=== PATIENT | male | born 1990 | race Caucasian/White ===

== ENCOUNTER 2021-04-25 03:22 | Outpatient (CLI) | payer MEDICAID, SELFPAY ==
[2021-04-25 16:49] LABS: Abs Immature Grans 0.02 10^3/uL (0.0-0.06); Absolute Basophil Count 0.02 10^3/uL (0.0-0.2); Absolute Eosinophil Count 0.04 10^3/uL (0.0-0.7); Absolute Lymphocyte Count 1.99 10^3/uL (1.2-3.4); Absolute Monocyte Count 0.66 10^3/uL (0.1-0.8); Absolute Neutrophil Count 3.99 10^3/uL (1.2-6.7); Basophils % 0.3; Eosinophils % 0.6; HCT 42.5 % (40.0-50.0); HGB 14.3 g/dL (13.5-17.5); Immature Grans % 0.3; Lymphocytes % 29.6; MCH 28.7 pg (27.0-33.0); MCHC 33.6 % (32.0-36.0); MCV 85.2 fL (80-95); MPV 9.7 fL (8.0-11.0); Monocytes % 9.8; Neutrophils % 59.4; Nucleated RBC 0 %; Platelet Count 286 10^3/uL (130-400); RBC 4.99 10^6/uL (4.36-5.78); WBC 6.72 10^3/uL (4.4-10.8)
[2021-04-25 17:22] LABS: ALT 86 U/L (16-63); AST 39 U/L (15-37); Albumin 4.3 g/dL (3.4-5.0); Alkaline Phosphatase 79 U/L (46-116); Anion Gap 7.9 mmol/L (3-11); BUN 9 mg/dL (7-18); Bilirubin, Total 0.4 mg/dL (0.2-1.0); CO2 29.1 mmol/L (21.0-32.0); CREATININE 0.9 mg/dL (0.70-1.30); Calcium 9.1 mg/dL (8.5-10.1); Chloride 103 mmol/L (98-107); GGT 51 U/L (15-85); Glucose 95 mg/dL (74-106); Potassium 4.1 mmol/L (3.5-5.1); Sodium 140 mmol/L (136-145); Total Protein 7.7 g/dL (6.4-8.2)
[2021-04-27 09:22] LABS: HBs Antibody, Quant 7.2 mIU/mL (See Note); Hepatitis B Surface Ab Negative (See Note)
[2021-04-27 09:26] LABS: Hepatitis B Surface Ag Negative (Negative)
[2021-04-27 10:15] LABS: HIV-1/2 Ag & Ab Screen Negative (Negative)
[2021-04-27 10:43] LABS: Hep B Core Antibody Negative (Negative)
[2021-04-27 10:48] LABS: Hepatitis C Ab w Rflx HCV PCR Reactive (Negative)
[2021-04-27 11:06] LABS: Hep A Total Ab w Rflx IgM Negative (Negative)
[2021-04-27 11:53] LABS: HCV RNA Qualitative Detected (Undetected)
[2021-04-28 22:53] LABS: HCV Genotype 1a (Undetected)
[2021-05-01 14:21] LABS: HCV RNA Detection Quantitative 4370000 IU/mL (Undetected)
== END 2021-04-25 03:23 | disposition home or self-care (01) ==
LOC: LBO 03:23
PROVIDERS: Visit Provider Nurse Practitioner Gerontology
DX: F11.20 Opioid dependence, uncomplicated (principal)
CPT/HCPCS: 36415; 80053; 86704; 86706; 86709; 86803; 87340; 87389; 87522; 82977; 85025; 87521

== ENCOUNTER 2021-06-25 11:46 | Emergency (ER) | payer MEDICAID, SELFPAY ==
[2021-06-25 11:54] VITALS: BP 120/80; PULSE 95; RESP 16; TEMP 37; O2SAT 99
--- NOTE | 2021-06-25 12:03 | ED.GENADUL_ITS ---
Discharge Plan Disposition Patient Disposition: AGAINST MEDICAL ADVICE Condition: Stable Discharge Details Clinical Impression: Hand laceration Primary Care Provider: Adriana,Local ED Provider: Carina Zimmerman Home Meds and New Rx's Prescriptions: New amoxicillin-pot clavulanate 875-125 mg tablet 1 tab PO BID 10 Days Qty: 20 0RF Continued buprenorphine-naloxone [Suboxone] 8-2 mg film 0RF Label Comments: DISSOLVE 2 FILMS UNDER THE TONGUE ONCE DIALY FOR 14 DAYS Mavyret 100-40 mg tablet PO 0RF Label Comments: TAKE 3 TABLETS BY MOUTH ONCE DAILY WITH FOOD Discharge Instructions Instructions: Laceration (ED) Additional Instructions: You are leaving the hospital AGAINST MEDICAL ADVICE. It is recommended that you stay for suture repair of your hand lacerations. Please take the antibiotic prescription as directed until finished. Please return to the emergency department when you are able for further evaluation and suture repair of your hand lacerations. Follow-up with your primary care doctor in 1 week. Return to the emergency department with any worsening or new concerning symptoms. Discharge Data Discharge Physician: Carina Zimmerman Medical Decision Making 31-year-old [id number] male presents with right hand laceration sustained after picking up a turkey who he thought was and scratched his hand with clots. Unknown tetanus status. Patient is to 3 cm slightly jagged laceration, some aspect superficial others extending through the dermis noted on the volar aspect of his right lateral palmar hand. Mild oozing of blood. No obvious foreign bodies. Neurovascular intact. No bony deformity. Boostrix ordered and recommended but patient declined. His hand was irrigated and soaked. Shortly after evaluation, patient stated he needed to leave to take care of his 2 young children. It was recommended that he stay for suture placement. Risks of disability including infection, continued bleeding, scar formation, or any possible neurovascular deficit described and patient understands and is still stating he needs to leave. AMA form signed. He was given a bottle of Augmentin to go in addition to prescription. He was advised to return here at any time today if he is able to have suture placement. Usual and customary return precautions given prior to leaving. Medical Records Medical records reviewed: Yes I reviewed the patient's medical records. HPI General Mode of arrival: ambulatory . Date/Time Provider Initiated Documentation: 06/25/21 12:02 . Limitations to Documentation: no limitations . Information obtained by: patient . 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 Patient states he is unsure of his tetanus status. He denies any other injuries. He denies any known foreign bodies in his hand. Related Data Home Medications Medication Instructions Recorded Confirmed amoxicillin 875 mg-potassium 1 tab PO BID 10 Days #20 tab 06/25/21 clavulanate 125 mg tablet buprenorphine 8 mg-naloxone 2 mg film 06/25/21 06/25/21 sublingual film (Suboxone) glecaprevir 100 mg-pibrentasvir 40 tab PO 06/25/21 06/25/21 mg tablet (Mavyret) Previous Rx's Medication Instructions Recorded amoxicillin 875 mg-potassium 1 tab PO BID 10 Days #20 tab 06/25/21 clavulanate 125 mg tablet Allergies Allergy/AdvReac Type Severity Reaction Status Date / Time No Known Allergies Allergy Unverified 06/25/21 11:58 General Stated Complaint: Laceration SONY: 4 Review of Systems All systems reviewed & are unremarkable except as noted in HPI and below Constitutional Constitutional: Denies chills, Denies excessive sweating, Denies fatigue, Denies fever(s), Denies weakness and Denies weight loss Eyes Eyes: Reports system reviewed and no additional complaints, except as documented and Denies blurry vision ENT Ears, Nose, Mouth, and Throat: Denies vertigo, Denies dizziness, Denies otalgia, Denies nasal congestion, Denies sore throat and Denies throat swelling Cardiovascular Cardiovascular: Denies chest pain, Denies syncope, Denies rapid heart rate and Denies dyspnea Respiratory Respiratory: Denies chest congestion, Denies cough, Denies pain on inspiration and Denies dyspnea Gastrointestinal Gastrointestinal: Denies abdominal pain, Denies diarrhea and Denies vomiting Genitourinary Genitourinary: Denies hematuria, Denies dysuria and Denies flank pain Musculoskeletal Musculoskeletal: Denies back pain and Denies joint swelling Integumentary/Breasts Skin/Breast: Denies lesions and Denies rash Neurologic Neurologic: Denies behavioral changes, Denies confusion, Denies vertigo, Denies dizziness, Denies syncope, Denies localized weakness and Denies weakness Psychiatric Psychiatric: Denies behavioral changes, Denies confusion and Denies depression Endocrine Endocrine: Denies excessive sweating and Denies fatigue Hematologic/Lymphatic Hematologic/Lymphatic: Denies easy bruising and Denies lymphadenopathy Allergic/Immunologic Allergic/Immunologic: Denies throat swelling PFSH All Active Problems (Updated 06/25/21 @ 12:58 by Carina Zimmerman DO) Hand laceration (Acute) Incarcerated right inguinal hernia (Acute 01/17/14) Medical History (Updated 06/25/21 @ 12:58 by Carina Zimmerman DO) Hepatitis C Narcotic abuse in remission Surgical History (Updated 06/25/21 @ 12:58 by Carina Zimmerman DO) History of hernia repair Social History Smoking/Tobacco Use Status: Current every day Smoking risk assessment performed?: Yes Alcohol Intake: never Drug use: Current Sobriety Do you feel safe at home: Yes Do you feel safe in your relationship?: Yes Exam Const General: cooperative and healthy appearing Orientation: alert, awake and oriented x3 HENMT Head: normal to inspection Ears: hearing grossly normal bilaterally, external ears normal and TM's normal bilaterally General nose exam: external nose normal Face and sinus: normal facial exam Mouth: oral mucosae normal Teeth and gingiva: dentition normal Throat: posterior oropharynx normal Eyes General: appearance normal, both eyes and all related structures Eyelids: eyelids normal Pupils: PERRL EOM: EOM intact bilaterally Neck Neck: normal visual inspection Lymphatic: no lymphadenopathy noted Chest Chest: normal inspection of the chest Resp Effort & Inspection: normal respiratory effort and able to speak in complete sentences Auscultation: clear to auscultation bilaterally Cardio Rate: regular rate Rhythm: regular rhythm GI Inspection: normal to inspection Palpation: soft, not firm, no guarding, no hepatosplenomegaly, no masses and nontender Auscultation: normal bowel sounds Back/Spine/Pelvis Back: no CVA tenderness Skin General skin exam: no rashes or lesions noted Neuro General: patient alert and patient awake Cognition: normal cognition Speech: speech normal Gait: normal gait Motor: muscle tone normal throughout Sensory Exam: no sensory deficits noted Extrem Hand/finger images: 1. 3 cm slightly jagged laceration extending through the dermis and also with superficial aspect. 2. 3 cm slightly jagged laceration mostly extending through the dermis. Mild oozing of blood. No obvious foreign bodies noted. Psych Appearance: grossly normal Mental Status: mental status grossly normal Speech and Movement: speech and movement normal Affect: normal affect Thought Process: normal Course Vital Signs Vital signs: Vital Signs Temperature 98.6 F 06/25/21 11:54 Pulse 95 H 06/25/21 11:54 Respiratory Rate 16 06/25/21 11:54 Blood Pressure 120/80 06/25/21 11:54 Pulse Oximetry 99 06/25/21 11:54 Temperature 98.6 F 06/25/21 11:54 Temperature Source Oral 06/25/21 11:54 Pulse 95 H 06/25/21 11:54 Respiratory Rate 16 06/25/21 11:54 Blood Pressure 120/80 06/25/21 11:54 Blood Pressure Position Supine 06/25/21 11:54 Pulse Oximetry 99 06/25/21 11:54 Oxygen Delivery Method Room Air 06/25/21 11:54 Oxygen Flow Rate 0 06/25/21 11:54
[2021-06-25] MEDS: Amox. 875/Clav. 125, 2 TABS/BTL 1 TAB PO (12:43)
== END 2021-06-25 12:44 | disposition left against medical advice (07) ==
PROVIDERS: Emergency Provider Physician Assistant
DX: S61.411A Laceration without foreign body of right hand, initial encounter (principal); W61.49XA Other contact with turkey, initial encounter; Z53.29 Procedure and treatment not carried out because of patient's decision for other reasons
CPT/HCPCS: 99283

== ENCOUNTER 2022-02-09 12:58 | Outpatient (CLI) | payer MEDICAID, SELFPAY ==
[2022-02-09 11:52] LABS: ALT 18 U/L (16-63); AST 19 U/L (15-37); GGT 15 U/L (15-85)
[2022-02-12 11:09] LABS: Hepatitis C Ab w Rflx HCV PCR Reactive (Negative)
[2022-02-12 13:20] LABS: HCV RNA Qualitative Undetected (Undetected)
[2022-02-12 19:00] LABS: HCV Genotype Undetected (Undetected)
== END 2022-02-09 12:59 | disposition home or self-care (01) ==
LOC: LBO 12:59
PROVIDERS: PCP Nurse Practitioner; Visit Provider Nurse Practitioner Gerontology
DX: F11.20 Opioid dependence, uncomplicated (principal); B19.20 Unspecified viral hepatitis C without hepatic coma
CPT/HCPCS: 36415; 86803; 87522; 82977; 84450; 84460; 87521

== ENCOUNTER 2023-08-12 13:40 | Outpatient (CLI) | payer MEDICAID, SELFPAY ==
[2023-08-12 23:16] LABS: PSA, Diagnostic 0.6 ng/mL (<=2.5)
== END 2023-08-12 13:41 | disposition home or self-care (01) ==
LOC: LBO 13:41
PROVIDERS: PCP Nurse Practitioner; Visit Provider Nurse Practitioner Gerontology
DX: R31.9 Hematuria, unspecified (principal)
CPT/HCPCS: 36415; 84153